=== PATIENT | male | born 1950 | race Caucasian/White ===

== ENCOUNTER → 2016-06-26 | Outpatient (CLI) | payer MEDICARE, BC ==
[2016-06-26 15:59] LABS: ABSOLUTE EOSINOPHILS # (AUTO) 0.3 10^3/uL (0.0-0.6); ABSOLUTE LYMPHOCYTES (AUTO) 1.8 10^3/uL (0.5-4.7); ABSOLUTE MONOCYTES (AUTO) 0.4 10^3/uL (0.1-1.4); ABSOLUTE NEUT (AUTO) 2.6 10^3/uL (1.7-8.2); BASOPHILS % (AUTO) 0.9 % (0-2); EOSINOPHILS % (AUTO) 5.4 % (0-6); HEMOGLOBIN 13.5 g/dL (13.5-17.0); HGB HCT DIFFERENCE 1.5; LYMPHOCYTES % (AUTO) 35.3 % (13-45); MEAN CORPUSCULAR HEMOGLOBIN 31.9 pg (27.0-33.4); MEAN CORPUSCULAR HGB CONC 34.5 g/dL (32.0-36.0); MEAN CORPUSCULAR VOLUME 92 fl (80-97); MONOCYTES % (AUTO) 7.4 % (3-13); RED BLOOD COUNT 4.23 10^6/uL (4.35-5.55); RED CELL DISTRIBUTION WIDTH 13.7 % (11.5-14.0); WHITE BLOOD COUNT 5.1 10^3/uL (4.0-10.5)
[2016-06-26 16:00] LABS: APPEARANCE,URINE SLIGHTLY-CLOUDY; BILIRUBIN,URINE NEGATIVE (NEGATIVE); GLUCOSE, URINE NEGATIVE (NEGATIVE); KETONES,URINE NEGATIVE (NEGATIVE); LEUKOCYTE ESTERASE,URINE SMALL (NEGATIVE); NITRITE,URINE NEGATIVE (NEGATIVE); PROTEIN,URINE NEGATIVE (NEGATIVE); UROBILINOGEN,URINE NEGATIVE mg/dL (<2.0)
[2016-06-26 16:15] LABS: PARTIAL THROMBOPLASTIN TIME 29.7 SEC (23.5-35.8); PROTHROMBIN TIME 13.1 SEC (11.4-15.4)
== END ==
LOC: OD 14:41
PROVIDERS: ATTEND Pain Medicine Interventional Pain Medicine
DX: Z79.01 Long term (current) use of anticoagulants (principal)
CPT/HCPCS: 36415; 81001; 85025; 85610; 85730

== ENCOUNTER 2016-08-19 09:41 | Day surgery (SDC) | payer MEDICARE, BC ==
[2016-08-13 13:42] LABS: APPEARANCE,URINE SLIGHTLY-CLOUDY; BILIRUBIN,URINE NEGATIVE (NEGATIVE); GLUCOSE, URINE NEGATIVE (NEGATIVE); KETONES,URINE NEGATIVE (NEGATIVE); LEUKOCYTE ESTERASE,URINE TRACE (NEGATIVE); NITRITE,URINE NEGATIVE (NEGATIVE); PROTEIN,URINE NEGATIVE (NEGATIVE); URINE SPECIFIC GRAVITY 1.011; UROBILINOGEN,URINE NEGATIVE mg/dL (<2.0)
[2016-08-13 13:42] LABS: HEMATOCRIT 40.1 % (37.9-51.0); HEMOGLOBIN 13.7 g/dL (13.5-17.0); MEAN CORPUSCULAR HEMOGLOBIN 31.9 pg (27.0-33.4); MEAN CORPUSCULAR VOLUME 94 fl (80-97); RED BLOOD COUNT 4.28 10^6/uL (4.35-5.55); RED CELL DISTRIBUTION WIDTH 13.3 % (11.5-14.0); WHITE BLOOD COUNT 5.5 10^3/uL (4.0-10.5)
[2016-08-13 13:48] LABS: PROTHROMBIN TIME 13.9 SEC (11.4-15.4)
[2016-08-13 13:49] LABS: PARTIAL THROMBOPLASTIN TIME 29.8 SEC (23.5-35.8)
--- NOTE | 2016-08-13 20:38 | EKG REPORT ---
SEVERITY:- NORMAL ECG - SINUS RHYTHM : Confirmed by: Adriel Moran MD 13-Aug-2016 20:37:38
[~2016-08-19 09:41] MED LIST: CEFAZOLIN 1 GM/D5W RTU 1 GM/50 ML RTUPB IV PRN; LACTATED RINGERS 1000 ML IV PRN; LIDOCAINE 0.5% INJ-PF (5 MG/ML) 50 ML SDV SUBCUT PRN
[2016-08-19] MEDS ORDERED: BUPIVACAINE HCL 0.25% /EPINEPHRINE INJ/PF 30 ML SDV ONE ×2 (10:01→13:04)
[2016-08-19] MEDS ORDERED: LIDOCAINE 1% INJ-PF (10 MG/ML) 30 ML SDV ONE ×2 (10:01→13:04)
[2016-08-19] MEDS ORDERED: SODIUM BICARBONATE 8.4% INJ 50 MEQ/50 ML DISP.SYRIN ONE (10:01)
[2016-08-19] MEDS ORDERED: ALBUTEROL SULFATE 0.083% NEB 2.5 MG/3 ML AMPUL NEB ONE (11:19)
[2016-08-19] MEDS ORDERED: FENTANYL CITRATE INJ/PF 100 MCG/2 ML AMPUL ONE (12:13)
[2016-08-19] MEDS ORDERED: MIDAZOLAM 2 MG/2 ML INJ ONE (12:13)
[2016-08-19] MEDS ORDERED: PROPOFOL INJ 200 MG/20 ML VIAL IV ONE (12:14)
[2016-08-19] MEDS ORDERED: ACETAMINOPHEN 100 ML IV ONE (12:14)
[2016-08-19] MEDS ORDERED: FENTANYL CITRATE INJ/PF 100 MCG/2 ML AMPUL IV PRN ×3 (12:54)
[2016-08-19] MEDS ORDERED: OXYCODONE-ACETAMINOPHEN 5-325 MG TABLET PO PRN ×3 (12:54→14:28)
[2016-08-19] MEDS ORDERED: MORPHINE SULFATE 10 MG/ML INJ IV PRN (12:54)
[2016-08-19] MEDS ORDERED: MEPERIDINE HCL/PF INJ 25 MG/1 ML DISP.SYRIN IV PRN (12:54)
[2016-08-19] MEDS ORDERED: DIPHENHYDRAMINE HCL 50 MG/ML VIAL IV PRN (12:54)
[2016-08-19] MEDS ORDERED: PROMETHAZINE HCL INJ 25 MG/1 ML VIAL IV PRN ×2 (12:54)
[2016-08-19] MEDS ORDERED: CEFAZOLIN INJ 1 GM VIAL ONE (14:14)
--- NOTE | 2016-08-19 14:18 | OPERATIVE REPORT E ---
Operative Report NAME: ALIYAH SALINAS : 1950 AGE: 66Y DATE OF SURGERY: 08/19/2016 ROOM: PREOPERATIVE DIAGNOSIS: Lumbar radiculopathy with chronic back and bilateral lower extremity pain. POSTOPERATIVE DIAGNOSIS: Lumbar radiculopathy with chronic back and bilateral lower extremity pain. OPERATIVE PROCEDURE: 1. Implantation of right and left surgical spinal cord stimulator electrodes under fluoroscopic guidance. 2. Implantation of programmable, rechargeable spinal cord stimulator pulse generator. 3. Complex analysis and programming. 4. Fluoroscopy for needle and wire placement. SURGEON: GREG VILLEGAS M.D. SENIOR INTERACTIVE PRODUCER: Dr. Phani Miller ANESTHESIA: MAC. INDICATIONS: Satisfactory trial with outpatient spinal cord stimulation. BLOOD LOSS: Minimal. SPECIMENS REMOVED: None. COMPLICATIONS: None. PROCEDURE NOTE: After obtaining informed consent, advising the patient of the risks and benefits, including serious neurological injury, bleeding, infection, allergic reaction, paralysis, nerve injury, and as well as poor stimulation pattern and poor pain control, he was taken to the operating room. He was placed comfortably in the prone position. Monitors were applied. MAC anesthesia was administered. He was prepped from the shoulders to the gluteal folds as well as the right and left flanks. It should be noted that the pulse generator site for implantation was predetermined and marked in the [employer] [facility]. Once appropriately draped after prepping and the appropriate waiting time for fire safety, he was evaluated under fluoroscopy and a suitable entrance site over the lumbar spine was identified with a planned epidural entrance site at T12-L1. The skin was anesthetized at both surgical sites with 1% lidocaine with bicarb followed by 0.25% bupivacaine with epinephrine. Sharp and blunt dissection were performed at both locations. Electrocautery was used for hemostasis as necessary. When a suitable working space was created over the lumbar region and the lumbar fascia was identified, Melissa retractor was placed. The spinal needle with 0.25% bupivacaine was then injected in the right and left side down to the interspace at T12-L1. Tuohy needles were inserted sequentially beginning at the right and then the left using loss of resistance to saline technique. He tolerated this well. No heme or cerebrospinal paresthesia were noted during needle placement. Octrodes were placed through each of the needles and advanced simply up to the mid T8 region. Their location was checked on the AP and lateral views on several occasions to assure safety and proper posterior placement of the electrodes. Trial stimulation was then initiated and good pattern of stimulation was obtained in all affected regions affected by pain. Multiple settings were utilized to obtain the same goal. Pursestrings of 0 Mersilene were placed around each of the needles and a distal anchor stitch was placed as well. Beginning on the left the needle was removed, with care being taken not to dislodge the satisfactory placement of the electrode. This was checked repeatedly on fluoro. Pursestrings were secured. The anchor was then placed about the electrode and advanced into the fascia. It was then secured with the 0-Mersilene ties. This was then repeated on the right side and satisfactory lead position was maintained. All wounds were copiously irrigated. The skin was anesthetized in the subcutaneous region from the pulse generator pocket to the midline incision and then tunneling proceeded. The leads were carefully placed into the pocket and connected to the pulse generator by Dr. Miller. All hex nuts were secured after impedance was checked and confirmed to be satisfactory. Again, all wounds were copiously irrigated with Betadine-containing irrigation solution. They were then closed with serial interrupted inverted vertical mattress sutures using 3-0 Polysorb. The lumbar incision was then stapled followed by Dermabond cement and the gluteal incision was taped with Dermabond tape followed by cement. This was allowed to dry followed by OpSite sponge dressings. He was then taken to the PACU for further postoperative care and monitoring. DICTATING PHYSICIAN: GREG VILLEGAS M.D. [id number] Y#: [id number] ID: [id number] JOB#: [id number] ACCT: [id number] cc:GREG VILLEGAS M.D. >
[2016-08-19] MEDS ORDERED: DEXAMETHASONE SOD PHOSPHATE INJ 4 MG/1 ML VIAL ONE (14:24)
[2016-08-19] MEDS ORDERED: KETOROLAC TROMETHAMINE 60 MG/2 ML SDV ONE (14:24)
[2016-08-19] MEDS ORDERED: ONDANSETRON HCL INJ/PF 4 MG/2 ML SDV ONE (14:24)
[2016-08-19] MEDS ORDERED: GLYCOPYRROLATE INJ 0.4 MG/2 ML VIAL ONE (14:24)
[2016-08-19 15:44] VITALS: BP 150/82
== END 2016-08-19 15:50 | disposition home or self-care (01) ==
LOC: OROUT 09:41
PROVIDERS: ATTEND Pain Medicine Interventional Pain Medicine
PROC: 00HU3MZ Insertion of Neurostimulator Lead into Spinal Canal, Percutaneous Approach (ICD-10-PCS; 2016-08-19)
PROC: BR17ZZZ Fluoroscopy of Thoracic Spine (ICD-10-PCS; 2016-08-19)
PROC: 0JH70MZ Insertion of Stimulator Generator into Back Subcutaneous Tissue and Fascia, Open Approach (ICD-10-PCS; principal; 2016-08-19 12:00)
DX: M54.16 Radiculopathy, lumbar region (principal); G89.4 Chronic pain syndrome; M47.896 Other spondylosis, lumbar region; M51.26 Other intervertebral disc displacement, lumbar region; M51.36 Other intervertebral disc degeneration, lumbar region; F45.42 Pain disorder with related psychological factors; K59.00 Constipation, unspecified; M25.561 Pain in right knee; M25.562 Pain in left knee; M48.06 Spinal stenosis, lumbar region; M60.80 Other myositis, unspecified site; F17.210 Nicotine dependence, cigarettes, uncomplicated; L43.9 Lichen planus, unspecified; I35.0 Nonrheumatic aortic (valve) stenosis; I10 Essential (primary) hypertension; Z79.899 Other long term (current) drug therapy; Z79.01 Long term (current) use of anticoagulants; Z79.891 Long term (current) use of opiate analgesic; Z79.82 Long term (current) use of aspirin; Z85.51 Personal history of malignant neoplasm of bladder; Z95.1 Presence of aortocoronary bypass graft
CPT/HCPCS: 93005; 36415; 85027; 85610; 85730; 81001; 71020; 72080; 93010; 63685; 63650; C1820; C1778; J2250; J3490 ×3; J0690 ×2; J1100; J1885; J3010; A9270 ×2; J2405; J2704; J0131; 300

== ENCOUNTER 2017-01-02 06:23 | Day surgery (SDC) | payer MEDICARE, BC ==
[~2017-01-02 06:23] MED LIST changes: -LACTATED RINGERS 1000 ML IV PRN; -LIDOCAINE 0.5% INJ-PF (5 MG/ML) 50 ML SDV SUBCUT PRN
[2017-01-02] MEDS ORDERED: SODIUM BICARBONATE 8.4% INJ 50 MEQ/50 ML DISP.SYRIN ONE (06:54)
[2017-01-02] MEDS ORDERED: BUPIVACAINE HCL 0.25% /EPINEPHRINE INJ/PF 30 ML SDV ONE (06:54)
[2017-01-02] MEDS ORDERED: LIDOCAINE 1% INJ-PF (10 MG/ML) 30 ML SDV ONE (06:54)
[2017-01-02] MEDS ORDERED: FENTANYL CITRATE INJ/PF 100 MCG/2 ML AMPUL ONE (08:25)
[2017-01-02] MEDS ORDERED: MIDAZOLAM 2 MG/2 ML INJ ONE (08:25)
[2017-01-02] MEDS ORDERED: PROPOFOL INJ 200 MG/20 ML VIAL IV ONE (08:26)
[2017-01-02] MEDS ORDERED: KETAMINE HCL INJ 500 MG/10 ML VIAL ONE (08:26)
[2017-01-02] MEDS ORDERED: DEXMEDETOMIDINE INJ 80 MCG/20 ML VIAL IV ONE (08:26)
[2017-01-02] MEDS ORDERED: DIPHENHYDRAMINE HCL 50 MG/ML VIAL IV PRN (09:13)
[2017-01-02] MEDS ORDERED: MORPHINE SULFATE 10 MG/ML INJ IV PRN (09:13)
[2017-01-02] MEDS ORDERED: FENTANYL CITRATE INJ/PF 100 MCG/2 ML AMPUL IV PRN ×3 (09:13)
[2017-01-02] MEDS ORDERED: PROMETHAZINE HCL INJ 25 MG/1 ML VIAL IV PRN ×2 (09:13)
[2017-01-02] MEDS ORDERED: OXYCODONE-ACETAMINOPHEN 5-325 MG TABLET PO PRN ×2 (09:13)
[2017-01-02] MEDS ORDERED: MEPERIDINE HCL/PF INJ 25 MG/1 ML DISP.SYRIN IV PRN (09:13)
[2017-01-02] MEDS ORDERED: CEFAZOLIN INJ 1 GM VIAL ONE (09:39)
--- NOTE | 2017-01-02 09:44 | OPERATIVE REPORT E ---
Operative Report NAME: ALIYAH SALINAS : 1950 AGE: 66Y DATE OF SURGERY: 01/02/2017 ROOM: PREOPERATIVE DIAGNOSIS: NONFUNCTIONING SPINAL CORD STIMULATING SYSTEM. POSTOPERATIVE DIAGNOSIS: NONFUNCTIONING SPINAL CORD STIMULATING SYSTEM. OPERATION: Removal of spinal cord stimulator pulse generator and dual electrodes as well as anchor systems under fluoroscopic guidance. COMPLICATIONS: None. BLOOD LOSS: Minimal. SURGEON: GREG VILLEGAS M.D. ANESTHESIA: MAC. GRE TUTOR: Surgical scrub. SPECIMENS REMOVED: Spinal cord stimulating system in its entirety. PROCEDURE NOTE: After obtaining informed consent, advising the patient of the risks and benefits including infection, neurological injury, aggravation of pain, worsening of pain. He was taken to the operating room and placed comfortably in the prone position. He was prepped with chlorhexidine with appropriate drying time. MAC anesthesia was administered. He was then draped. Fluoroscopy had been previously used to identify the leads and the anchor sites and the skin locations identified. Local anesthesia was then applied to the 2 surgical sites over the right gluteal region for the pulse generator and in the midline for the removal of the leads with 1% lidocaine with bicarb, followed by 0.25% bupivacaine with epinephrine. A total of 20 mL of each solution was utilized and spread equally with distribution for each surgical site. Sharp and blunt dissection were performed down over the pulse generator. This was removed easily. This wound was then closed after copious irrigation with inverted vertical mattress sutures using 3-0 Polysorb. Attention was then directed towards the midline incision. Again, sharp and blunt dissection were performed down. The anchor sites were readily identified. They were removed. All leads in their entirety were removed, including surgical suture material. The wound was then copiously irrigated and closed as before with inverted vertical mattress sutures using 3-0 Polysorb. The skin of both sites came together nicely. Dermabond tape, followed by Dermabond cement was then placed. When this was dry, Telfa and sponge Tegaderms were placed over this. He was then taken to the PACU for further postoperative care and monitoring. He remained neurologically intact. DICTATING PHYSICIAN: GREG VILLEGAS M.D. [id number] Y#: [id number] ID: [id number] JOB#: [id number] ACCT: [id number] cc:GREG VILLEGAS M.D. >
[2017-01-02] MEDS ORDERED: OXYCODONE HCL IR 5 MG TABLET PO PRN (10:18)
[2017-01-02 12:31] VITALS: BP 151/77
--- NOTE | 2017-01-02 16:48 | RADIOLOGY REPORT (SQ) ---
EXAM DESCRIPTION: SPINE SINGLE VIEW COMPLETED DATE/TIME: 01/02/2017 4:40 pm REASON FOR STUDY: SPINAL STIMULATOR REMOVAL ASSISTED WITH C ARM IN OR M54.17 RADICULOPATHY, LUMBOSA CRAL REGION COMPARISON: None. FLUOROSCOPY TIME: 0.0 minute 1 images saved to PACS. TECHNIQUE: Intra-operative images acquired during surgical procedure to evaluate progress. NUMBER OF IMAGES: 1 a LIMITATIONS: None. FINDINGS: Fluoroscopic image was obtained during spinal stimulator removal. IMPRESSION: IMAGE(S) OBTAINED DURING PROCEDURE. COMMENT: Quality ID [id number]: Final reports for procedures using fluoroscopy that document radiation exp osure indices, or exposure time and number of fluorographic images (if radiation exposure indices are not available) Please consult full operative report of the attending physician for description of the procedure. TECHNICAL DOCUMENTATION: JOB ID: [id number] [employer]- All Rights Reserved
--- NOTE | 2017-01-02 16:48 | RADIOLOGY REPORT (SQ) ---
EXAM DESCRIPTION: NO CHG FLUORO COMPLETE DATE/TIME: 01/02/2017 4:40 pm REASON FOR STUDY: SPINAL STIMULATOR REMOVAL ASSISTED WITH C ARM IN OR M54.17 RADICULOPATHY, LUMBOSA CRAL REGION FINDINGS: Please see combined report for performance of procedure and radiologic supervision and int erpretation. IMPRESSION: Please see combined report for performance of procedure and radiologic supervision and i nterpretation.
== END 2017-01-02 11:55 | disposition home or self-care (01) ==
LOC: OROUT 06:23
PROVIDERS: ATTEND Pain Medicine Interventional Pain Medicine
PROC: 0JPT0MZ Removal of Stimulator Generator from Trunk Subcutaneous Tissue and Fascia, Open Approach (ICD-10-PCS; 2017-01-02)
PROC: 00PU0MZ Removal of Neurostimulator Lead from Spinal Canal, Open Approach (ICD-10-PCS; principal; 2017-01-02 08:30)
DX: M54.17 Radiculopathy, lumbosacral region (principal); I10 Essential (primary) hypertension; F17.210 Nicotine dependence, cigarettes, uncomplicated; Z79.82 Long term (current) use of aspirin; Z79.899 Other long term (current) drug therapy
CPT/HCPCS: 63661; 63688; 72020; J2250; J3490 ×5; J0690 ×2; J3010; J2704; 1936

== ENCOUNTER → 2017-01-16 | Outpatient (CLI) | payer MEDICARE, BC ==
--- NOTE | 2017-01-16 15:03 | RADIOLOGY REPORT (SQ) ---
EXAM DESCRIPTION: MRI THORACIC SPINE WITHOUT COMPLETED DATE/TIME: 01/16/2017 11:20 am REASON FOR STUDY: NEURALGIA AND NEURITIS, UNSPEC (M79.2) M54.16 RADICULOPATHY, LUMBAR REGION M79.2 NEURALGIA AND NEURITIS, UNSPECIFIED COMPARISON: None. TECHNIQUE: Sagittal and Axial imaging includes T1, T2, STIR and gradient echo sequences. LIMITATIONS: None. FINDINGS: LOCALIZER: No worrisome findings. ALIGNMENT: Normal. VERTEBRAE: Intact. BONE MARROW: Normal. No marrow replacement or reactive changes. HARDWARE: None in the spine. CORD: Normal in size and signal intensity. SOFT TISSUES: No soft tissue masses. THORACIC DISCS T1-T12: A tiny right paracentral disc protrusion is present at T6-7, without significa nt central or foraminal encroachment. There is minimal posterior disc bulging without central or foraminal stenosis at T3-4, T4-5, T5-6, an d T7-8. Diffuse facet arthropathy is present throughout the thoracic spine without significant central or for aminal encroachment. IMPRESSION: No high-grade central or foraminal stenosis. No MR evidence of acute thoracic wedge compression deformity. Normal thoracic spinal cord TECHNICAL DOCUMENTATION: JOB ID: [id number] [employer]- All Rights Reserved
--- NOTE | 2017-01-16 15:56 | RADIOLOGY REPORT (SQ) ---
EXAM DESCRIPTION: MRI LUMBAR SPINE WITHOUT COMPLETED DATE/TIME: 01/16/2017 11:20 am REASON FOR STUDY: NEURALGIA AND NEURITIS, UNSPEC (M79.2) M54.16 RADICULOPATHY, LUMBAR REGION M79.2 NEURALGIA AND NEURITIS, UNSPECIFIED COMPARISON: Fluoroscopy imaging from spinal cord stimulator removal 01/02/2017 TECHNIQUE: Sagittal and Axial imaging includes T1, T2, STIR and gradient echo sequences. Coronal T2/ HASTE imaging. LIMITATIONS: None. FINDINGS: VISUALIZED UPPER ABDOMEN: Limited evaluation. No acute or suspicious findings suggested. SEGMENTATION: No transitional anatomy. The lowest well-developed disc space is labeled L5-S1. ALIGNMENT: Anatomic. VERTEBRAE: Intact. BONE MARROW: No findings worrisome for aggressive marrow replacement. Vertebral body endplate irregu larity from Schmorl's nodes with adjacent sclerosis. DISC SIGNAL: Diffuse decreased T2 weighted intervertebral disc signal with disc space loss of height at L3-4 and L4-5 POSTERIOR ELEMENTS: Generally intact. No pars defect evident. HARDWARE: None in the spine. Spinal cord stimulator electrodes seen on 01/02/2017 and it removed. Th ere is a tiny seroma at the site of surgery, superficial to the L2 and L3 spinous processes, measurin g about 4 cm craniocaudad by 3 cm transverse by 6 mm AP. CORD AND CONUS: Normal in size and signal intensity. Conus at the L1 level. SOFT TISSUES: No aortic aneurysm seen. No bulky retroperitoneal adenopathy or mass. No paraspinal mas s or fluid. T12-L1: Mild bilateral facet arthropathy. No central or foraminal stenosis. L1-L2: No significant central canal narrowing. There is very mild bilateral foraminal narrowing from facet hypertrophy. L2-L3: Broad diffuse posterior disc bulging and moderate bilateral facet and ligament hypertrophy cau ses moderate central canal stenosis. There is effacement of the CSF around the lumbar nerve roots, b est shown on axial image 12 moderate right and mild left foraminal narrowing is present without exiti ng L2 nerve root impingement. L3-L4: Broad diffuse posterior disc bulging and moderate bilateral facet and ligament hypertrophy cau ses mild to moderate central canal stenosis with partial effacement of the CSF around the lumbar nerv e roots. Moderate bilateral foraminal narrowing is present without exiting L3 nerve root impingement . L4-L5: Broad diffuse posterior disc bulge and bony spurring and bulky bilateral facet hypertrophy pre sent. There is moderate central canal stenosis with partial effacement of the CSF around the lumbar nerve roots. Moderate bilateral foraminal narrowing is present without definite exiting L4 nerve phylicia t impingement. There are small synovial cyst protruding off the superior aspect of the right L4-5 fa cet joint without canal or foraminal impingement. L5-S1: Broad diffuse posterior disc bulging is present. Mild bilateral facet and ligament hypertroph y. No central stenosis. Moderate bilateral foraminal narrowing is present, without exiting L5 nerve root impingement. SACRUM: Visualized upper sacrum intact. OTHER: No other significant findings. IMPRESSION: Multilevel central canal and neural foraminal narrowing as above. TECHNICAL DOCUMENTATION: JOB ID: [id number] [employer] All Rights Reserved
== END ==
LOC: RAD 09:10
PROVIDERS: ATTEND Pain Medicine Interventional Pain Medicine
DX: M54.16 Radiculopathy, lumbar region (principal); M79.2 Neuralgia and neuritis, unspecified
CPT/HCPCS: 72146; 72148